=== PATIENT | female | born 1990 | race Asian ===

== ENCOUNTER 2022-11-29 13:24 | Outpatient (CLI) | payer BC | END 2022-11-29 13:25 | disposition home or self-care (01) | LOC: BICMAMMO 13:24 | PROVIDERS: ATTEND Obstetrics & Gynecology | DX: N64.4 Mastodynia (principal); R92.8 Other abnormal and inconclusive findings on diagnostic imaging of breast | CPT/HCPCS: 77066; G0279 ==